=== PATIENT | female | born 1945 | race Hispanic/Latino ===

== ENCOUNTER 2021-09-25 15:43 | Emergency (ER) | payer MEDICARE ==
[2021-09-25] MEDS ORDERED: ONDANSETRON 4 MG/2 ML INJ IV ONE (16:24)
[2021-09-25] MEDS ORDERED: SODIUM CHLORIDE 0.9% 1000 ML 1,000 ML IV ONE (16:24)
[2021-09-25] MEDS ORDERED: LOPERAMIDE 2 MG CAP PO ONE (16:25)
[2021-09-25 16:45] LABS: Basophils % (Auto) 0.5 % (0.0-1.8); Eosinophils % (Auto) 0.2 % (0.0-4.3); Hematocrit 41.8 % (30.3-42.9); Hemoglobin 14.7 gm/dl (10.1-14.3); Lymphocytes # (Auto) 1.2 K/mm3 (1.2-5.4); Lymphocytes % (Auto) 15.6 % (13.4-35.0); Mean Corpuscular HGB Conc 35 % (30-34); Mean Corpuscular Volume 92 fl (79-97); Monocytes # (Auto) 0.5 K/mm3 (0.0-0.8); Platelet Count 231 K/mm3 (140-440); Red Blood Count 4.57 M/mm3 (3.65-5.03); Red Cell Distribution Width 14.8 % (13.2-15.2)
--- NOTE | 2021-09-25 16:58 | XRay Report ---
CHEST 1 VIEW 09/25/2021 4:30 PM INDICATION / CLINICAL INFORMATION: Weakness. COMPARISON: None available. FINDINGS: SUPPORT DEVICES: None. HEART / MEDIASTINUM: Normal size of the cardiac silhouette with moderate aortic atherosclerosis. LUNGS / PLEURA: No significant pulmonary abnormality. No significant pleural effusion. No pneumothora x. ADDITIONAL FINDINGS: No significant additional findings. IMPRESSION: 1. No acute abnormality of the chest. Signer Name: Jerry Marin MD Signed: 09/25/2021 4:54 PM Workstation Name: [id number]
[2021-09-25 17:03] LABS: INR 1.09 (0.87-1.13)
[2021-09-25 17:07] LABS: Alanine Aminotransferase 15 units/L (7-56); Albumin 4.7 g/dL (3.9-5); Blood Urea Nitrogen 17 mg/dL (7-17); Calcium 9.8 mg/dL (8.4-10.2); Hemolysis Index 14
[2021-09-25 17:07] LABS: Bilirubin,Urine NEG (Negative); Blood,Urine MOD (Negative); Color,Urine Yellow (Yellow); Hyaline Casts,Urine 2 /LPF; Mucus,Urine 1+ /HPF; Urobilinogen,Urine < 2.0 mg/dL (<2.0)
[2021-09-25 17:25] LABS: BUN/Creatinine Ratio 24
[2021-09-25 17:58] LABS: C-Reactive Protein 1.5 mg/dL (0.00-1.30)
--- NOTE | 2021-09-25 18:33 | Cat Scan Report ---
CT ABDOMEN AND PELVIS WITH CONTRAST INDICATION / CLINICAL INFORMATION: Diffuse abdominal pain. TECHNIQUE: Axial CT images were obtained through the abdomen and pelvis after Isovue-300, 100 cc IV c ontrast. All CT scans at this location are performed using CT dose reduction for ALARA by means of a utomated exposure control. COMPARISON: None available. FINDINGS: LOWER CHEST: Small hiatal hernia. LIVER: Mild diffuse fatty infiltration. GALLBLADDER: No significant abnormality. BILE DUCTS: No significant abnormality. PANCREAS: No significant abnormality. SPLEEN: Multiple splenic artery aneurysms. The largest measures approximately 1.6 cm. ADRENALS: No significant abnormality. RIGHT KIDNEY / URETER: No significant abnormality. LEFT KIDNEY / URETER: No significant abnormality. STOMACH / SMALL BOWEL: No significant abnormality. COLON: Mild noninflamed diverticulosis. APPENDIX: No significant abnormality. PERITONEUM: No free fluid. No free air. No fluid collection. LYMPH NODES: No significant adenopathy. VASCULAR STRUCTURES: Scattered atherosclerotic vascular calcification. URINARY BLADDER: No significant abnormality. REPRODUCTIVE ORGANS: No significant abnormality. ADDITIONAL FINDINGS: None. SKELETAL SYSTEM: No significant abnormality. IMPRESSION: 1. Negative for obstruction or localized inflammation. 2. Incidental splenic artery aneurysms. 3. Noninflamed colonic diverticulosis. Signer Name: Carlos Vasquez MD Signed: 09/25/2021 6:29 PM Workstation Name: [id number]
--- NOTE | 2021-09-25 18:59 | Emergency Department Report ---
ED General Adult HPI - General Chief complaint: Weakness Stated complaint: Weakness Time Seen by Provider: 09/25/21 16:14 Source: EMS Mode of arrival: Stretcher Limitations: No Limitations - History of Present Illness Initial comments: WEAKNESS, UNABLE TO KEEP FOOD DOWN. 20G L AC. BGL 93 -: Gradual, days(s) Location: abdomen Radiation: non-radiation Severity scale (0 -10): 2 Quality: aching Consistency: intermittent Improves with: none Treatments Prior to Arrival: none - Related Data Allergies Allergy/AdvReac Type Severity Reaction Status Date / Time No Known Allergies Allergy Verified 09/25/21 15:46 ED Review of Systems ROS: Stated complaint: Weakness Other details as noted in HPI Constitutional: denies: chills, fever Eyes: denies: eye pain, eye discharge, vision change ENT: denies: ear pain, throat pain Respiratory: denies: cough, shortness of breath, wheezing Cardiovascular: denies: chest pain, palpitations Endocrine: no symptoms reported Gastrointestinal: denies: abdominal pain, nausea, diarrhea Genitourinary: denies: urgency, dysuria, discharge Musculoskeletal: denies: back pain, joint swelling, arthralgia Skin: denies: rash, lesions Neurological: denies: headache, weakness, paresthesias Psychiatric: denies: anxiety, depression Hematological/Lymphatic: denies: easy bleeding, easy bruising ED Past Medical Hx - Past Medical History Previous Medical History?: Yes Hx Hypertension: Yes Hx Diabetes: Yes Additional medical history: colitis - Social History Smoking Status: Never Smoker Substance Use Type: None ED Physical Exam - General Limitations: No Limitations General appearance: alert, in no apparent distress - Head Head exam: Present: atraumatic, normocephalic - Eye Eye exam: Present: normal appearance - ENT ENT exam: Present: mucous membranes moist - Neck Neck exam: Present: normal inspection - Respiratory Respiratory exam: Present: normal lung sounds bilaterally. Absent: respiratory distress - Cardiovascular Cardiovascular Exam: Present: regular rate, normal rhythm. Absent: systolic murmur, diastolic murmur, rubs, gallop - GI/Abdominal GI/Abdominal exam: Present: soft, normal bowel sounds - Extremities Exam Extremities exam: Present: normal inspection - Back Exam Back exam: Present: normal inspection - Neurological Exam Neurological exam: Present: alert, oriented X3 - Psychiatric Psychiatric exam: Present: normal affect, normal mood - Skin Skin exam: Present: warm, dry, intact, normal color. Absent: rash ED Course Vital Signs 09/25/21 09/25/21 09/25/21 15:44 16:05 16:42 Temperature 98.3 F Pulse Rate 88 92 H Respiratory 16 19 Rate Blood Pressure Blood Pressure 135/70 [Right] O2 Sat by Pulse 99 100 97 Oximetry 09/25/21 09/25/21 09/25/21 16:45 17:01 17:15 Temperature Pulse Rate 95 H 88 90 Respiratory 22 23 15 Rate Blood Pressure 118/39 118/39 Blood Pressure [Right] O2 Sat by Pulse 97 97 96 Oximetry 09/25/21 09/25/21 09/25/21 17:31 17:45 18:13 Temperature Pulse Rate 84 84 95 H Respiratory 15 19 Rate Blood Pressure 118/39 118/39 118/39 Blood Pressure [Right] O2 Sat by Pulse 97 97 97 Oximetry 09/25/21 18:15 Temperature Pulse Rate 95 H Respiratory 21 Rate Blood Pressure 118/39 Blood Pressure [Right] O2 Sat by Pulse 99 Oximetry - Reevaluation(s) Reevaluation #1: 09/25/21 18:58 WORK UP SHOWED NORMAL WBC , CT NEGATIVE ., VSS NO DISTRESS, MEDS GIVEN ED Medical Decision Making - Lab Data Result diagrams: 09/25/21 16:27 09/25/21 16:27 Critical care attestation.: If time is entered above; I have spent that time in minutes in the direct care of this critically ill patient, excluding procedure time. ED Disposition Clinical Impression: Acute gastroenteritis, Diverticula of small intestine Disposition: 01 HOME / SELF CARE / HOMELESS Is pt being admited?: No Does the pt Need Aspirin: No Condition: Stable Instructions: Viral Gastroenteritis, Adult, Diverticulosis
[2021-09-25 21:04] VITALS: BP 118/44
--- NOTE | 2021-09-26 09:23 | Electrocardiograph Report ---
[facility] Test Date: 2021-09-25 Test Time: 16:17:40 Pat Name: GANESH BERG Department: Room: Gender: F [employer] Operator: FABI : 1945 Requested By: BRISEIDA TOTH Order Number: [id number] Reading MD: Mauri Calles Measurements Intervals Williamson Rate: 93 P: 71 ID: [id number] QRS: 18 QRSD: 87 T: 25 QT: 374 QTc: 465 Interpretive Statements Sinus rhythm Inferior infarct, old No previous ECG available for comparison Electronically Signed On 09-26-2021 9:23:15 EST by Mauri Calles
== END 2021-09-25 19:10 | disposition home or self-care (01) ==
LOC: ED 15:43
DX: K52.9 Noninfective gastroenteritis and colitis, unspecified (principal); K57.10 Diverticulosis of small intestine without perforation or abscess without bleeding; I10 Essential (primary) hypertension; E11.8 Type 2 diabetes mellitus with unspecified complications
CPT/HCPCS: 36415; 71045; 74177; 80053; 81001; 82550; 83615; 83735; 83880; 84484; 85025; 85610; 86140; 93005; 96361; 96374; 99284; J2405; J7030; Q9967; Q0162